=== PATIENT | male | born 1980 | race Caucasian/White ===

== ENCOUNTER 2017-09-12 19:27 | Inpatient (IN) | payer BC ==
[~2017-09-12] VITALS: Ht 172.7 cm; Wt 86.1 kg
[2017-09-12 19:32] VITALS: PULSE 142; RESP 22; O2SAT 91
[2017-09-12 19:45] VITALS: BP 140/62; PULSE 121; RESP 30; TEMP 99.5
[2017-09-12] MEDS ORDERED: SODIUM CHLORIDE 0.9% FLUSH 10 ML FLUSH IVF PRN (19:45)
[2017-09-12] MEDS ORDERED: LORazepam 2 MG/ML VIAL IV PUSH ONE ×2 (19:45→20:00)
[2017-09-12] MEDS ORDERED: SODIUM CHLOR 0.9% 1000 ML INJ 1,000 ML IV ONE (20:00)
[2017-09-12 20:12] LABS: AUTOMATED NEUTROPHIL # 15.3 TH/MM3 (1.8-7.7); BASOPHIL # 0.1 TH/MM3 (0-0.2); BASOPHIL % 0.4 % (0.0-2.0); EOSINOPHIL # 0.1 TH/MM3 (0-0.4); EOSINOPHIL % 0.4 % (0.0-4.0); HEMATOCRIT 35.6 % (39.0-51.0); HEMOGLOBIN 12.4 GM/DL (13.0-17.0); LYMPHOCYTE # 1.3 TH/MM3 (1.0-4.8); MEAN CELL VOLUME 84.7 FL (80.0-100.0); MEAN CORPUSCULAR HEMOGLOBIN 29.5 PG (27.0-34.0); MEAN CORPUSCULAR HGB CONC 34.8 % (32.0-36.0); MEAN PLATELET VOLUME 7.5 FL (7.0-11.0); MONO % 10.5 % (0.0-8.0); NEUT % 81.7 % (16.0-70.0); PLATELET COUNT 341 TH/MM3 (150-450); RED CELL DISTRIBUTION WIDTH 13.4 % (11.6-17.2); WHITE BLOOD COUNT 18.7 TH/MM3 (4.0-11.0)
[2017-09-12 20:34] VITALS: O2SAT 98
--- NOTE | 2017-09-12 20:39 | RADRPT ---
EXAM DATE/TIME: 09/12/2017 20:14 [facility] COMPARISON: No previous studies available for comparison. INDICATIONS : Overdose. Chest pain. MEDICAL HISTORY : None. SURGICAL HISTORY : None. ENCOUNTER: Initial ACUITY: 1 day PAIN SCORE: Non-responsive. LOCATION: Bilateral chest FINDINGS: A single view of the chest demonstrates minimal density left lower lobe. Heart normal in size. The ca rdiomediastinal contours are unremarkable. Osseous structures are intact. CONCLUSION: Minimal density left lower lobe likely atelectasis. Carlos Bedoya MD on September 12, 2017 at 20:36 Board Certified Radiologist. This report was verified electronically.
[2017-09-12] MEDS ORDERED: PIPERACIL-TAZO 4.5 GM PREMIX 100 ML IV ONE (21:00)
[2017-09-12] MEDS ORDERED: VANCOMYCIN INJ 1,000 MG in SODIUM CHLOR 0.9% 250 ML INJ 250 ML IV ONE (22:00)
[2017-09-12 22:05] LABS: ALBUMIN 2.8 GM/DL (3.4-5.0); AST (GOT) 400 U/L (15-37); BICARBONATE 25.5 MEQ/L (21.0-32.0); BLOOD UREA NITROGEN 27 MG/DL (7-18); CALCIUM 8.3 MG/DL (8.5-10.1); CHLORIDE 96 MEQ/L (98-107); CREATININE 1.52 MG/DL (0.60-1.30); GLOMERULAR FILTRATION RATE 52 ML/MIN (>89); GLUCOSE,RANDOM 107 MG/DL (74-106); SODIUM (NA) 131 MEQ/L (136-145)
[2017-09-12 22:32] LABS: ALKALINE PHOSPHATASE 70 U/L (45-117); ALT (GPT) 100 U/L (12-78); TOTAL BILIRUBIN ADULT 0.5 MG/DL (0.2-1.0); TOTAL PROTEIN 6.1 GM/DL (6.4-8.2); TROPONIN I 0.05 NG/ML (0.02-0.05)
--- NOTE | 2017-09-12 23:25 | HHI.HP ---
HPI Service Critical Care Medicine Primary Care Physician Unknown Admission Diagnosis Cocaine overdose, pneumonia, possible endocarditis Diagnosis: Travel History International Travel<30 Days: No Contact w/Intl Traveler <30 Da: No Traveled to Known Affected Are: No History of Present Illness 37-year-old male with past medical history of substance abuse who presents to [facility] emergency department with altered mental status. His girlfriend states that he has "been on a gonzalez" for 3 weeks and has been injecting crack cocaine. Today his father states he was driving him around trying to get him admitted into rehabilitation but the patient was refusing. He then became confused, "talking nonsense" and diaphoretic and therefore he brought him to [facility] emergency department. Upon arrival ED physician states heart rate was nearly 200 with blood pressure 240/ 140. He has been administered Ativan total of 4 mg IV. Blood pressure is 140 over 60s with heart rate in the 120s. His girlfriend states he was admitted to [facility] in [place] 3 times over the last few weeks for "sepsis" and signed himself out AMA each time. He was last in the hospital about a week and a half ago. In the ED he received 1 L normal saline bolus, vancomycin, Zosyn. His lactic acid is normal. His creatinine is elevated to 1.52. Transaminases are elevated. White blood cell count is 18 Review of Systems ROS Limitations: Clinical Condition Past Family Social History Allergies: Coded Allergies: No Known Allergies (Verified Allergy, Severe, 09/13/17) Past Medical History Anxiety Polysubstance abuse Past Surgical History ORIF left forearm Reported Medications Wellbutrin Trazodone Family History Mother in 2013 from breast cancer He had a maternal aunt with multiple sclerosis Social History He is a smoker. Reportedly he had quit for about a year and recently resumed smoking He drinks alcohol but not usually heavily Has a history of polysubstance abuse and both snorts and injects narcotics. His drug of choice is injection of crack cocaine. His family reports that he was clean for about a year and recently started using again after he relapsed following receiving narcotics for dental procedure. He has been in detox multiple times in the past. Physical Exam Vital Signs Vital Signs Date Time Temp Pulse Resp B/P (MAP) Pulse Ox O2 Delivery O2 Flow Rate FiO2 09/12/17 20:34 98 Room Air 09/12/17 19:45 99.5 121 30 140/62 (88) 09/12/17 19:32 142 22 91 Physical Exam GENERAL: Well-nourished, well-developed patient who is asleep in ED stretcher. When aroused he becomes agitated and restless, moving all extremities SKIN: Warm and dry. Track parker left upper arm. No petechiae. Respiratory hemorrhages. HEAD: Atraumatic. Normocephalic. EYES: Pupils equal and round, 3 mm and reactive bilaterally. No scleral icterus. Conjunctivae injected. ENT: No nasal bleeding or discharge. Mucous membranes dry NECK: Trachea midline. No JVD. CARDIOVASCULAR: Cardiopulmonary examination is somewhat limited because patient is moaning during examination. Tachycardic, regular, no murmurs rubs or gallops.. RESPIRATORY: Tachypneic but no accessory muscle use. Clear to auscultation. Breath sounds equal bilaterally. On nasal cannula. GASTROINTESTINAL: Abdomen soft, non-tender, nondistended. Bowel sounds present. MUSCULOSKELETAL: Extremities without clubbing, cyanosis, or edema. No obvious deformities. Scar overlying left forearm is well-healed. NEUROLOGICAL: Opens eyes to noxious stimuli. Gaze is conjugate. Moves all extremities restlessly and localizes.. No obvious cranial nerve deficits. Motor grossly within normal limits. Moans. Laboratory Laboratory Tests Test 09/12/17 19:50 09/12/17 21:05 09/12/17 21:35 White Blood Count 18.7 Red Blood Count 4.20 Hemoglobin 12.4 Hematocrit 35.6 Mean Corpuscular Volume 84.7 Mean Corpuscular Hemoglobin 29.5 Mean Corpuscular Hemoglobin Concent 34.8 Red Cell Distribution Width 13.4 Platelet Count 341 Mean Platelet Volume 7.5 Neutrophils (%) (Auto) 81.7 Lymphocytes (%) (Auto) 7.0 Monocytes (%) (Auto) 10.5 Eosinophils (%) (Auto) 0.4 Basophils (%) (Auto) 0.4 Neutrophils # (Auto) 15.3 Lymphocytes # (Auto) 1.3 Monocytes # (Auto) 2.0 Eosinophils # (Auto) 0.1 Basophils # (Auto) 0.1 CBC Comment DIFF FINAL Differential Comment B-Type Natriuretic Peptide 40 Lactic Acid Level 1.2 Blood Urea Nitrogen 27 Creatinine 1.52 Random Glucose 107 Total Protein 6.1 Albumin 2.8 Calcium Level 8.3 Alkaline Phosphatase 70 Aspartate Amino Transf (AST/SGOT) 400 Alanine Aminotransferase (ALT/SGPT) 100 Total Bilirubin 0.5 Sodium Level 131 Potassium Level 3.5 Chloride Level 96 Carbon Dioxide Level 25.5 Anion Gap 10 Estimat Glomerular Filtration Rate 52 Total Creatine Kinase 40046 Creatine Kinase MB 64.3 Creatine Kinase MB % 0.6 Troponin I 0.05 Date/Time Source Procedure Growth Status 09/12/17 21:05 Blood Peripheral Aerobic Blood Culture Pending Received 09/12/17 21:05 Blood Peripheral Anaerobic Blood Culture Pending Received Result Diagram: 09/12/17194909/12/172134 Caprinwilma VTE Risk Assessment Keo VTE Risk Assessment: Mod/High Risk (score >= 2) VTE Pharm Contraindication: risk of bleeding if he has septic emboli Keo Risk Assessment Model Point Value = 1 Point Value = 2 Point Value = 3 Point Value = 5 Age 41-60 Minor surgery BMI > 25 kg/m2 Swollen legs Varicose veins or History of unexplained or recurrent spontaneous Oral contraceptives or hormone replacement Sepsis (< 1 month) Serious lung disease, including pneumonia (< 1 month) Abnormal pulmonary function Acute myocardial infarction Congestive heart failure (< 1 month) History of inflammatory bowel disease Medical patient at bed rest Age 61-74 Arthroscopic surgery Major open surgery (> 45 min) Laparoscopic surgery (> 45 min) Malignancy Confined to bed (> 72 hours) Immobilizing plaster cast Central venous access Age >= 75 History of VTE Family history of VTE Factor V Leiden Prothrombin [id number] Lupus anticoagulant Anticardiolipin antibodies Elevated serum homocysteine Heparin-induced thrombocytopenia Other congenital or acquired thrombophilia Stroke (< 1 month) Elective arthroplasty Hip, pelvis, or leg fracture Acute spinal cord injury (< 1 month) Prophylaxis Regimen Total Risk Factor Score Risk Level Prophylaxis Regimen 0-1 Low Early ambulation 2 Moderate Order ONE of the following: *Sequential Compression Device (SCD) *Heparin 5000 units SQ BID 3-4 Higher Order ONE of the following medications: *Heparin 5000 units SQ TID *Enoxaparin/Lovenox 40 mg SQ daily (WT < 150 kg, CrCl > 30 mL/min) *Enoxaparin/Lovenox 30 mg SQ daily (WT < 150 kg, CrCl > 10-29 mL/min) *Enoxaparin/Lovenox 30 mg SQ BID (WT < 150 kg, CrCl > 30 mL/min) AND/OR *Sequential Compression Device (SCD) 5 or more Highest Order ONE of the following medications: *Heparin 5000 units SQ TID (Preferred with Epidurals) *Enoxaparin/Lovenox 40 mg SQ daily (WT < 150 kg, CrCl > 30 mL/min) *Enoxaparin/Lovenox 30 mg SQ daily (WT < 150 kg, CrCl > 10-29 mL/min) *Enoxaparin/Lovenox 30 mg SQ BID (WT < 150 kg, CrCl > 30 mL/min) AND *Sequential Compression Device (SCD) Assessment and Plan Assessment and Plan NEURO: Agitated delirium Polysubstance abuse, IVDU opioid/crack cocaine ED physician states he is placing under Kaminski act. We'll obtain psychiatric consult when patient is able to participate. Check UDS, alcohol level, ASA/APAP, CT brain. RESP: Pneumonitis Tobacco abuse DuoNeb every 6 hours. Albuterol every 2 hours as needed. CXR - bilateral opacities ?pneumonitis. Obtain CT chest to further characterize and evaluate for septic pulmonary emboli. Noncontrast due to acute kidney injury. CV: Tachycardia and hypertension on arrival secondary to stimulant use. Following EKG and cardiac markers. Obtain 2-D echo to evaluate for vegetation GI: Transaminase elevation Trend LFts. Check CT abd/pelvis to eval for e/o septic emboli FEN/RENAL: Acute kidney injury Acute rhabdomyolysis secondary to stimulant use LR 150 an hour Monitor intake and output closely. Monitor creatinine. Trend CPK Monitor electrolytes and replace as indicated. ID: ?[id number] Leukocytosis/tachycardia may be secondary to stimulant but he is at risk for bacteremia/ endocarditis due to IVDU. Lactic acid normal Check blood culture, influenza antigen, UA with reflex culture. Received empiric vancomycin and Zosyn in the ED. Will continue. HEME: Check coags and fibrinogen. ENDO: Euglycemic PROPH: SCDs for DVT prophylaxis. Avoid pharmacologic DVT prophylaxis until evaluate CT brain. Famotidine for stress ulcer prophylaxis. ACCESS: Peripheral IV providing adequate access at this time. Girlfriend and father updated at bedside. Multiple questions answered. Level III H&P Sandy Bartholomew MD Sep 12, 2017 23:25
[2017-09-12] MEDS ORDERED: BISACODYL 10 MG SUPP RECTAL PRN (23:45)
[2017-09-12] MEDS ORDERED: SENNOSIDES 8.6 MG TAB PO PRN (23:45)
[2017-09-12] MEDS ORDERED: RESP: ALBUTEROL 2.5 MG/3 ML NEB (PRN) INH (23:45)
[2017-09-12] MEDS ORDERED: MISCELLANEOUS NURSING INFORMATION XX SCH (23:45)
[2017-09-12] MEDS ORDERED: ONDANSETRON HCL 4 MG/2 ML VIAL IV PUSH PRN (23:45)
[2017-09-12] MEDS ORDERED: Vancomycin Consult Pharmacy 1 EA OTHER SCH (23:45)
[2017-09-12] MEDS ORDERED: CHLORHEXIDINE GLUCONATE 2 % 1 PACK (2 CLOTHS) TOP PRN (23:45)
[2017-09-12] MEDS ORDERED: LACTULOSE SYRUP 20 GM/30 ML CUP PO PRN (23:45)
[2017-09-12] MEDS ORDERED: MAGNESIUM HYDROXIDE SUSP 30 ML CUP PO PRN (23:45)
[2017-09-12] MEDS ORDERED: SODIUM CHLORIDE 0.9% FLUSH 10 ML FLUSH IV FLUSH PRN (23:45)
[2017-09-13] VITALS (19 sets, daily range): BP systolic 108–139; BP diastolic 59–82; PULSE 89–107; RESP 16–34; TEMP 98.1–99.6; O2SAT 93–98
[2017-09-13] LABS: AMORPHOUS SEDIMENT, URINE RARE; BILIRUBIN, URINE NEG (NEG); BLOOD, URINE LARGE (NEG); GLUCOSE,URINE NEG (NEG); KETONE, URINE TRACE mg/dL (NEG); NITRITE,URINE NEG (NEG); URINE COLOR YELLOW (YELLW/STRAW); URINE LEUKOCYTE ESTERASE NEG (NEG)
[2017-09-13 00:12] LABS: ACETAMINOPHEN LESS THAN 2.0 MCG/ML (10.0-30.0)
[2017-09-13 00:13] LABS: INTERNATIONAL NORMALIZED RATIO 1.2 RATIO
--- NOTE | 2017-09-13 01:11 | RADRPT ---
EXAM DATE/TIME: 09/13/2017 00:48 [facility] COMPARISON: No previous studies available for comparison. INDICATIONS : Altered mental status, possible overdose. RADIATION DOSE: 56.35 CTDIvol (mGy) MEDICAL HISTORY : None SURGICAL HISTORY : None. ENCOUNTER: Initial ACUITY: 1 day PAIN SCALE: 0/10 LOCATION: cranial TECHNIQUE: Multiple contiguous axial images were obtained of the head. Using automated exposure control and adj ustment of the mA and/or kV according to patient size, radiation dose was kept as low as reasonably a chievable to obtain optimal diagnostic quality images. DICOM format image data is available electro nically for review and comparison. FINDINGS: CEREBRUM: The ventricles are normal for age. No evidence of midline shift, mass lesion, hemorrhage or acute in farction. No extra-axial fluid collections are seen. POSTERIOR FOSSA: The cerebellum and brainstem are intact. The 4th ventricle is midline. The cerebellopontine angle i s unremarkable. EXTRACRANIAL: The visualized portion of the orbits is intact. SKULL: The calvaria is intact. No evidence of skull fracture. CONCLUSION: No acute disease. Campbell Chaudhary Jr., MD on September 13, 2017 at 1:09 Board Certified Radiologist. This report was verified electronically.
--- NOTE | 2017-09-13 01:12 | RADRPT ---
EXAM DATE/TIME: 09/13/2017 00:51 [facility] COMPARISON: CHEST SINGLE AP, September 12, 2017, 20:14. INDICATIONS : Shortness of breath, evaluate for pneumonia. RADIATION DOSE: 5.54 CTDIvol (mGy) ; Combined studies - Thorax/Abdomen/Pelvis MEDICAL HISTORY : None SURGICAL HISTORY : None. ENCOUNTER: Initial ACUITY: 1 day PAIN SCALE: 0/10 LOCATION: chest TECHNIQUE: Volumetric scanning of the chest was performed. Using automated exposure control and adjustment of t he mA and/or kV according to patient size, radiation dose was kept as low as reasonably achievable to obtain optimal diagnostic quality images. DICOM format image data is available electronically for r eview and comparison. Follow-up recommendations for detected pulmonary nodules are based at a minimum on nodule size and pa tient risk factors according to Fleischner Society Guidelines. FINDINGS: LUNGS: Diffuse scattered bilateral ground glass infiltrates involving both upper lower lobes. PLEURAE: There is no pleural thickening or pleural effusion. MEDIASTINUM: The heart and great vessels demonstrate no acute abnormality. There is no mediastinal or hilar lymph adenopathy. AXILLAE: Within normal limits. No lymphadenopathy. MUSCULOSKELETAL: Within normal limits for patient age. MISCELLANEOUS: The visualized upper abdominal organs demonstrate no acute abnormality. CONCLUSION: 1. Bilateral pulmonary infiltrates. Campbell Chaudhary Jr., MD on September 13, 2017 at 1:10 Board Certified Radiologist. This report was verified electronically.
--- NOTE | 2017-09-13 01:13 | RADRPT ---
EXAM DATE/TIME: 09/13/2017 00:51 [facility] COMPARISON: No previous studies available for comparison. INDICATIONS : Abdominal pain, possible sepsis. ORAL CONTRAST: No oral contrast ingested. RADIATION DOSE: 5.54 CTDIvol (mGy) ; Combined studies - Thorax/Abdomen/Pelvis MEDICAL HISTORY : None SURGICAL HISTORY : None. ENCOUNTER: Initial ACUITY: 1 day PAIN SCALE: 4/10 LOCATION: All quadrants. TECHNIQUE: Volumetric scanning of the abdomen and pelvis was performed. Using automated exposure control and ad justment of the mA and/or kV according to patient size, radiation dose was kept as low as reasonably achievable to obtain optimal diagnostic quality images. DICOM format image data is available electro nically for review and comparison. FINDINGS: LOWER LUNGS: The visualized lower lungs are clear. LIVER: Homogeneous density without lesion. There is no dilation of the biliary tree. No calcified gallston es. SPLEEN: Normal size without lesion. PANCREAS: Within normal limits. KIDNEYS: Normal in size and shape. There is no mass, stone, or hydronephrosis. ADRENAL GLANDS: Within normal limits. VASCULAR: There is no aortic aneurysm. BOWEL/MESENTERY: The stomach, small bowel, and colon demonstrate no acute abnormality. There is no free intraperitone al air or fluid. ABDOMINAL WALL: Within normal limits. RETROPERITONEUM: There is no lymphadenopathy. BLADDER: No wall thickening or mass. REPRODUCTIVE: Within normal limits. INGUINAL: There is no lymphadenopathy or hernia. MUSCULOSKELETAL: Within normal limits for patient age. CONCLUSION: No acute disease. Campbell Chaudhary Jr., MD on September 13, 2017 at 1:11 Board Certified Radiologist. This report was verified electronically.
[2017-09-13] MEDS: SODIUM CHLOR 0.9% 1000 ML INJ 1,000 ML IV SCH ×2 (01:57→06:28)
[2017-09-13] MEDS: PIPERACIL-TAZO 3.375 GM PREMIX 50 ML IV SCH ×4 (02:40→20:44)
[2017-09-13 03:45] LABS: AUTOMATED NEUTROPHIL # 10.7 TH/MM3 (1.8-7.7); BASOPHIL % 0.3 % (0.0-2.0); EOSINOPHIL % 0.2 % (0.0-4.0); HEMATOCRIT 34.6 % (39.0-51.0); HEMOGLOBIN 11.9 GM/DL (13.0-17.0); LYMPH % 8.9 % (9.0-44.0); LYMPHOCYTE # 1.2 TH/MM3 (1.0-4.8); MEAN CORPUSCULAR HEMOGLOBIN 29.3 PG (27.0-34.0); MEAN CORPUSCULAR HGB CONC 34.4 % (32.0-36.0); MEAN PLATELET VOLUME 7.4 FL (7.0-11.0); MONO % 8.9 % (0.0-8.0); MONOCYTE # 1.2 TH/MM3 (0-0.9); NEUT % 81.7 % (16.0-70.0); PLATELET COUNT 295 TH/MM3 (150-450); RED BLOOD COUNT 4.07 MIL/MM3 (4.50-5.90); RED CELL DISTRIBUTION WIDTH 13.7 % (11.6-17.2); WHITE BLOOD COUNT 13.1 TH/MM3 (4.0-11.0)
[2017-09-13 03:58] LABS: ALBUMIN 2.8 GM/DL (3.4-5.0); ALT (GPT) 101 U/L (12-78); AST (GOT) 354 U/L (15-37); BLOOD UREA NITROGEN 18 MG/DL (7-18); CHLORIDE 100 MEQ/L (98-107); CREATININE 1.14 MG/DL (0.60-1.30); GLOMERULAR FILTRATION RATE 73 ML/MIN (>89); GLUCOSE,RANDOM 110 MG/DL (74-106); MAGNESIUM 1.8 MG/DL (1.5-2.5); PHOSPHORUS 2.5 MG/DL (2.5-4.9); SODIUM (NA) 134 MEQ/L (136-145)
[2017-09-13] MEDS: CHLORHEXIDINE GLUCONATE 2 % 1 PACK (2 CLOTHS) TOP SCH (03:59)
[2017-09-13 04:24] LABS: ALKALINE PHOSPHATASE 68 U/L (45-117); TOTAL BILIRUBIN ADULT 0.6 MG/DL (0.2-1.0); TOTAL PROTEIN 5.9 GM/DL (6.4-8.2); TROPONIN I 0.04 NG/ML (0.02-0.05)
[2017-09-13] MEDS: HEPARIN SODIUM - SQ 10,000 UNITS/ML VIAL SQ SCH ×3 (06:27→20:44)
[2017-09-13] MEDS ORDERED: HALOPERIDOL LACTATE 5 MG/ML AMP IV PUSH PRN (08:00)
--- NOTE | 2017-09-13 08:02 | HHI.CCPN ---
Subjective Remarks/Hospital Course Hospital Course: 37-year-old male with past medical history of substance abuse who presents to [facility] emergency department with altered mental status. His girlfriend states that he has "been on a gonzalez" for 3 weeks and has been injecting crack cocaine. Today his father states he was driving him around trying to get him admitted into rehabilitation but the patient was refusing. She then became confused, "talking nonsense" and diaphoretic and therefore he brought to [facility] emergency department. Upon arrival ED physician states heart rate was nearly 200 with blood pressure 240/ 140. He has been administered Ativan total of 4 mg IV. Blood pressure is 140 over 60s with heart rate in the 120s. His girlfriend states he was admitted to [facility] in [place] 3 times over the last few weeks for "sepsis" and signed himself out AMA each time. He was last in the hospital about a week and a half ago. In the ED he received 1 L normal saline bolus, vancomycin, Zosyn. His lactic acid is normal. His creatinine is elevated to 1.52. Transaminases are elevated. White blood cell count is 18 Subjective: 09/13: doing well. denies complaints. ROS negative. HR and BP improved. severe agitation improved as well. CK downtrending. Cr baseline. LFTs downtrending. uop adequate. Objective Vital Signs Date Time Temp Pulse Resp B/P (MAP) Pulse Ox O2 Delivery O2 Flow Rate FiO2 09/13/17 06:00 98 09/13/17 04:00 99.4 26 114/65 (81) 97 09/13/17 03:58 Nasal Cannula 2.00 Intake and Output 09/13/17 09/13/17 09/14/17 08:00 16:00 00:00 Intake Total 2400 ml Output Total 1115 ml Balance 1285 ml Result Diagram: 09/13/17 0326 09/13/17 0326 Objective Remarks GENERAL: young male, lying in bed, resting comfortably. SKIN: Warm and dry. Track parker left upper arm. No petechiae. HEAD: Atraumatic. Normocephalic. EYES: Pupils equal and round, 3 mm and reactive bilaterally. No scleral icterus. ENT: No nasal bleeding or discharge. Mucous membranes dry NECK: Trachea midline. No JVD. CARDIOVASCULAR: normal rate, regular rhythm. sinus by telemetry. RESPIRATORY: equal chest rise. unlabored. 2L o2 by nc. GASTROINTESTINAL: Abdomen soft, non-tender, nondistended. no guarding. MUSCULOSKELETAL: Extremities without clubbing, cyanosis, or edema. No obvious deformities. Scar overlying left forearm is well-healed. NEUROLOGICAL: opens eyes to voice. follows commands. no focal deficits. A/P Assessment and Plan Assessment: 37yM presented with toxic encephalopathy secondary to cocaine overdose and acute hypoxemia. High suspicion for infective endocarditis given the history, and his pulmonary imaging is suggestive of possible septic emboli vs. crack lung. Continue ivf and abx and f/u 2d echo and cultures. trend CK. stable for transfer to floor. NEURO: Polysubstance abuse, IVDU opioid/crack cocaine Toxic Encephalopathy - improved. under Kaminski Act by ED physician psych consult. haldol prn for severe agitation watch for withdraw symptoms. RESP: Tobacco abuse Crack lung vs. Septic Emboli DuoNeb every 6 hours. Albuterol every 2 hours as needed. wean o2 by nc for goal spo2 > 92% aggressive pulmonary toilet PT consult OOB CV: Tachycardia and hypertension - resolved. likely secondary to overdose. f/u 2d echo GI: Transaminase elevation- improving swallow eval and advance diet trend LFTs daily FEN/RENAL: Acute kidney injury- improving. Acute rhabdomyolysis- improving trend CKs q6h continue LR @ 150cc/hr ID: Continue vancomycin, zosyn. f/u blood cultures f/u echo HEME: daily cbc. ENDO: Euglycemic PROPH: SCDs for DVT prophylaxis. lovenox. Famotidine for stress ulcer prophylaxis. ACCESS: Peripheral IV providing adequate access at this time. Dispo: transfer to floor. consult hospitalist services. Ugo Loaiza MD Sep 13, 2017 08:02
[2017-09-13] MEDS: LACTATED RINGER'S 1000 ML INJ 1,000 ML IV SCH ×2 (08:30→14:40)
[2017-09-13] MEDS: SODIUM CHLORIDE 0.9% FLUSH 10 ML FLUSH IV FLUSH SCH ×2 (08:36→20:44)
[2017-09-13] MEDS: FAMOTIDINE 20 MG TAB PO SCH ×2 (08:41→20:44)
[2017-09-13] MEDS: DOCUSATE SODIUM 50 MG/SENNA 8.6 MG TAB PO SCH ×2 (08:42→20:45)
[2017-09-13] MEDS ORDERED: ENOXAPARIN SODIUM 40 MG/0.4 ML SYRINGE SQ SCH (09:00)
[2017-09-13] MEDS ORDERED: FAMOTIDINE 20 MG/2 ML VIAL IV PUSH PRN (09:00)
[2017-09-13] MEDS: VANCOMYCIN INJ 1,750 MG in SODIUM CHLORID 0.9% 500 ML INJ 500 ML IV SCH ×2 (12:26→22:52)
[2017-09-13] MEDS ORDERED: LACTATED RINGER'S 1000 ML INJ 1,000 ML IV ONE (12:30)
--- NOTE | 2017-09-13 13:20 | PD.PSY.CON ---
Provisional Diagnosis Admission Date Sep 12, 2017 at 21:59 [place] I. Adjustment Disorder with depressed mood, polysubstance dependence including opiates, cocaine, benzodiazepines [place] II. Deferred [place] III. No significant medical history History of Present Illness Service Psychiatry Consult Requested By Critical care team Reason for Consult Suicidal attempt Primary Care Physician Unknown HPI The patient is a 37-year-old man, single, domiciled with his father, unemployed, with psychiatric history of depression, no previous psychiatric admission, no currently psychotropics or outpatient care, polysubstance dependence including opiates, cocaine, benzodiazepines, patient has been Kaminski acted before due to substance related issues, history of incarcerations, no significant medical history who presents to [facility] emergency department with altered mental status. His girlfriend states that he has "been on a gonzalez" for 3 weeks and has been injecting crack cocaine. Today his father states he was driving him around trying to get him admitted into rehabilitation but the patient was refusing. He then became confused, "talking nonsense" and diaphoretic and therefore he brought him to [facility] emergency department. Upon arrival ED physician states heart rate was nearly 200 with blood pressure 240/140. He has been administered Ativan total of 4 mg IV. Blood pressure is 140 over 60s with heart rate in the 120s. His girlfriend states he was admitted to [facility] in [place] 3 times over the last few weeks for "sepsis" and signed himself out AMA each time. He was last in the hospital about a week and a half ago. In the ED he received 1 L normal saline bolus, vancomycin, Zosyn. His lactic acid is normal. His creatinine is elevated to 1.52. Transaminases are elevated. White blood cell count is 18. Consulted to psychiatry to assess potential suicidal attempt behind overdose. Patient is currently on the Kaminski act. At the moment of this evaluation the patient reports that he overdosed with multiple drugs "to forget and to go to sleep". He says that at some point he verbalized that he wanted to and he was better to be . He says that there are issues in his life. He refused to talk about at this moment stating "I want to talk about". He does say that he has been sober for certain time, but recently has relapsed and has been using drugs continuously. At this moment the patient denies suicidal ideation and homicidal ideation, he denies visual and auditory hallucinations. No confusion is observed, no delirium. He is oriented 3. Collateral from his father Srini Antony, [id number]: His father states that He is a drugs abuser, but he was fine for a year or more, the he was to the dentist got prescribe some pain medications and apparently since then he has relapsed. The father clarifies that the patient verbalized suicidal intentions multiple times when he was in his way to the hospital. He says that this is the first time he sees his son so disorganized and so depressed. Review of Systems Psychiatric: COMPLAINS OF: Depression, Suicidal Ideation Except as stated in HPI: all other systems reviewed are Neg Past Family Social History Coded Allergies: No Known Allergies (Verified Allergy, Severe, 09/13/17) Current Medications Medications (Trade) Dose Ordered Sig/Amanda Route Start Time Stop Time Status Last Admin (NS Flush) 2 ml UNSCH PRN IV FLUSH 09/12/17 23:45 (NS Flush) 2 ml BID IV FLUSH 09/13/17 09:00 09/13/17 08:36 (Pepcid Inj) 20 mg Q12HR PRN IV PUSH 09/13/17 09:00 (Pepcid) 20 mg Q12HR PO 09/13/17 09:00 09/13/17 08:41 (Zofran Inj) 4 mg Q6H PRN IV PUSH 09/12/17 23:45 (Albuterol Neb) 2.5 mg Q2HR NEB PRN INH 09/12/17 23:45 Miscellaneous Information 1 Q361D XX 09/12/17 23:45 09/13/17 01:50 (Chlorhexidine 2% Cloth) 3 pack Taper DAILY@04 TOP 09/13/17 04:00 09/09/18 03:59 09/13/17 03:59 (Chlorhexidine 2% Cloth) 3 pack UNSCH PRN TOP 09/12/17 23:45 (Tania-Colace) 1 tab BID PO 09/13/17 09:00 (Milk Of Magnesia Liq) 30 ml Q12H PRN PO 09/12/17 23:45 (Senokot) 17.2 mg Q12H PRN PO 09/12/17 23:45 (Dulcolax Supp) 10 mg DAILY PRN RECTAL 09/12/17 23:45 (Lactulose Liq) 30 ml DAILY PRN PO 09/12/17 23:45 Pharmacy Profile Note 0 ml @ 0 mls/hr UNSCH OTHER 09/12/17 23:45 Piperacillin Sod/ Tazobactam Sod 50 ml @ 100 mls/hr Q6H IV 09/13/17 03:00 09/13/17 08:35 (Heparin Inj) 5,000 units Q8HR SQ 09/13/17 06:00 09/13/17 06:27 Lactated Ringer's 1,000 ml @ 150 mls/hr Q6H40M IV 09/13/17 08:00 09/13/17 08:30 (Haldol Inj) 5 mg Q4H PRN IV PUSH 09/13/17 08:00 Vancomycin HCl 1750 mg/Sodium Chloride 517.5 ml @ 250 mls/hr Q12H IV 09/13/17 11:00 09/13/17 12:26 Miscellaneous Information SPECIFIC LAB TO BE DRAWN:VANCOMYCIN TROUGH DATE TO... ONCE ONCE .XX 09/14/17 10:45 09/14/17 10:46 Lactated Ringer's 1,000 ml @ 999 mls/hr BOLUS ONCE IV 09/13/17 12:30 09/13/17 13:30 (Desyrel) 100 mg HS PO 09/13/17 21:00 UNV Family Psych History No family psychiatric history Social History Patient was born and raised in [place], he lives with his father in [place], he has a girlfriend, unemployed, highest level of education is some college Patient's Strengths (min. 2) Support of family Physical Exam At this moment no tremors, no EPS, but psychomotor retardation noted Vital Signs Vital Signs Date Time Temp Pulse Resp B/P (MAP) Pulse Ox O2 Delivery O2 Flow Rate FiO2 09/13/17 12:00 101 09/13/17 08:00 99.6 28 133/82 (99) 96 09/13/17 03:58 Nasal Cannula 2.00 I/O 09/13/17 09/13/17 09/14/17 08:00 16:00 00:00 Intake Total 2400 ml 700 ml Output Total 1115 ml Balance 1285 ml 700 ml Lab Results Test 09/12/17 19:50 09/12/17 21:05 09/12/17 21:35 09/12/17 23:43 White Blood Count 18.7 TH/MM3 Red Blood Count 4.20 MIL/MM3 Hemoglobin 12.4 GM/DL Hematocrit 35.6 % Mean Corpuscular Volume 84.7 FL Mean Corpuscular Hemoglobin 29.5 PG Mean Corpuscular Hemoglobin Concent 34.8 % Red Cell Distribution Width 13.4 % Platelet Count 341 TH/MM3 Mean Platelet Volume 7.5 FL Neutrophils (%) (Auto) 81.7 % Lymphocytes (%) (Auto) 7.0 % Monocytes (%) (Auto) 10.5 % Eosinophils (%) (Auto) 0.4 % Basophils (%) (Auto) 0.4 % Neutrophils # (Auto) 15.3 TH/MM3 Lymphocytes # (Auto) 1.3 TH/MM3 Monocytes # (Auto) 2.0 TH/MM3 Eosinophils # (Auto) 0.1 TH/MM3 Basophils # (Auto) 0.1 TH/MM3 CBC Comment DIFF FINAL Differential Comment B-Type Natriuretic Peptide 40 PG/ML Lactic Acid Level 1.2 mmol/L Blood Urea Nitrogen 27 MG/DL Creatinine 1.52 MG/DL Random Glucose 107 MG/DL Total Protein 6.1 GM/DL Albumin 2.8 GM/DL Calcium Level 8.3 MG/DL Alkaline Phosphatase 70 U/L Aspartate Amino Transf (AST/SGOT) 400 U/L Alanine Aminotransferase (ALT/SGPT) 100 U/L Total Bilirubin 0.5 MG/DL Sodium Level 131 MEQ/L Potassium Level 3.5 MEQ/L Chloride Level 96 MEQ/L Carbon Dioxide Level 25.5 MEQ/L Anion Gap 10 MEQ/L Estimat Glomerular Filtration Rate 52 ML/MIN Total Creatine Kinase 21061 U/L Creatine Kinase MB 64.3 NG/ML Creatine Kinase MB % 0.6 % Troponin I 0.05 NG/ML Salicylates Level LESS THAN 1.7 MG/DL Acetaminophen Level LESS THAN 2.0 MCG/ML Ethyl Alcohol Level LESS THAN 3 MG/DL Prothrombin Time 12.0 SEC Prothromb Time International Ratio 1.2 RATIO Activated Partial Thromboplast Time 32.4 SEC Fibrinogen 458 mg/dL Urine Color YELLOW Urine Turbidity CLEAR Urine pH 6.0 Urine Specific [place] 1.016 Urine Protein 30 mg/dL Urine Glucose (UA) NEG mg/dL Urine Ketones TRACE mg/dL Urine Occult Blood LARGE Urine Nitrite NEG Urine Bilirubin NEG Urine Urobilinogen LESS THAN 2.0 MG/DL Urine Leukocyte Esterase NEG Urine RBC 12 /hpf Urine WBC 1 /hpf Urine Amorphous Sediment RARE Microscopic Urinalysis Comment CATH-CULT NOT IND Urine Opiates Screen POS Urine Barbiturates Screen NEG Urine Amphetamines Screen POS Urine Benzodiazepines Screen NEG Urine Cocaine Screen POS Urine Cannabinoids Screen NEG Test 09/13/17 01:15 09/13/17 03:26 09/13/17 08:58 09/13/17 08:59 Nasal Screen MRSA (PCR) MRSA DETECTED White Blood Count 13.1 TH/MM3 Red Blood Count 4.07 MIL/MM3 Hemoglobin 11.9 GM/DL Hematocrit 34.6 % Mean Corpuscular Volume 85.0 FL Mean Corpuscular Hemoglobin 29.3 PG Mean Corpuscular Hemoglobin Concent 34.4 % Red Cell Distribution Width 13.7 % Platelet Count 295 TH/MM3 Mean Platelet Volume 7.4 FL Neutrophils (%) (Auto) 81.7 % Lymphocytes (%) (Auto) 8.9 % Monocytes (%) (Auto) 8.9 % Eosinophils (%) (Auto) 0.2 % Basophils (%) (Auto) 0.3 % Neutrophils # (Auto) 10.7 TH/MM3 Lymphocytes # (Auto) 1.2 TH/MM3 Monocytes # (Auto) 1.2 TH/MM3 Eosinophils # (Auto) 0.0 TH/MM3 Basophils # (Auto) 0.0 TH/MM3 CBC Comment DIFF FINAL Differential Comment Blood Urea Nitrogen 18 MG/DL Creatinine 1.14 MG/DL Random Glucose 110 MG/DL Total Protein 5.9 GM/DL Albumin 2.8 GM/DL Calcium Level 8.0 MG/DL Phosphorus Level 2.5 MG/DL Magnesium Level 1.8 MG/DL Alkaline Phosphatase 68 U/L Aspartate Amino Transf (AST/SGOT) 354 U/L Alanine Aminotransferase (ALT/SGPT) 101 U/L Total Bilirubin 0.6 MG/DL Sodium Level 134 MEQ/L Potassium Level 3.6 MEQ/L Chloride Level 100 MEQ/L Carbon Dioxide Level 25.0 MEQ/L Anion Gap 9 MEQ/L Estimat Glomerular Filtration Rate 73 ML/MIN Total Creatine Kinase 6438 U/L 5214 U/L Creatine Kinase MB 50.6 NG/ML 47.6 NG/ML Creatine Kinase MB % 0.8 % 0.9 % Troponin I 0.04 NG/ML 0.02 NG/ML Date/Time Source Procedure Growth Status 09/12/17 21:05 Blood Peripheral Aerobic Blood Culture - Preliminary NO GROWTH IN 1 DAY Resulted 09/12/17 21:05 Blood Peripheral Anaerobic Blood Culture - Preliminary NO GROWTH IN 1 DAY Resulted Mental Status Examination Appearance: Appropriate Consciousness: Alert Orientation: x4 Motor Activity: Normal gait Speech: Unremarkable Language: Adequate Fund of Knowledge: Adequate Attention and Concentration: Adequate Memory: Unremarkable Mood: Sad Affect: Irritable, Sad Thought Process & Associations: Intact Thought Content: Appropriate Hallucination Type: None Delusion Type: None Suicidal Ideation: No Suicidal Plan: No Suicidal Intention: No Homicidal Ideation: No Homicidal Plan: No Homicidal Intention: No Insight: Poor Judgment: Poor Assessment & Plan Problem List: (1) Adjustment disorder with depressed mood ICD Codes: F43.21 - Adjustment disorder with depressed mood Assessment & Plan: On psychiatric evaluation today the patient seems to be and resistant, oppositional, very irritable. He reports that he has overdosed with the intention to "go away". He denies suicidal ideation at this moment, but his father on collateral information reports that the patient verbalized suicidal ideation multiple times while he was in his way to the hospital. Patient has been agitated and disorganized in the ICU, but at the moment of this evaluation he is oriented 3, logical and coherent. The patient will be admitted in psychiatry due to his high level of risk of suicidality and danger to himself. Since patient reports difficulty sleeping at night I will start trazodone 100 mg to help with depression and insomnia. Once patient is psychiatrically cleared please transfer to psychiatry for longitudinal observation of mood, behavior and to create a safe discharge plan to the patient. We'll follow-up. Assessment & Plan Estimated LOS: Michael Ferrell MD Sep 13, 2017 13:20
--- NOTE | 2017-09-13 16:33 | ECHRPT ---
Indication: SEPSIS CONCLUSIONS The left ventricular systolic function is normal with an estimated ejection fraction in the range of 60-65%. Normal left ventricular size. Wall thickness is normal. No regional wall motion abnormalities are present. BP: / HR: Rhythm: Sinus Technical Quality:Good FINDINGS LEFT VENTRICLE The left ventricular systolic function is normal with an estimated ejection fraction in the range of 60-65%. Normal left ventricular size. Wall thickness is normal. No regional wall motion abnormalities are present. RIGHT VENTRICLE Normal right ventricular size and systolic function. LEFT ATRIUM The left atrial size is normal. RIGHT ATRIUM The right atrial size is normal. ATRIAL SEPTUM Normal atrial septal thickness without atrial level shunting by limited color doppler interrogation. AORTA The aortic root and proximal ascending aorta are normal in size on limited imaging. MITRAL VALVE Structurally normal mitral valve. No mitral valve stenosis or regurgitation. AORTIC VALVE Trileaflet aortic valve. No aortic valve stenosis or regurgitation. TRICUSPID VALVE Structurally normal tricuspid valve. No tricuspid valve stenosis or regurgitation. PULMONARY VALVE The pulmonary valve is not well visualized. VESSELS The inferior vena cava is normal in size. PERICARDIUM No pericardial effusion. Vincenzo Cameron MD (Electronically Signed) Final Date:13 September 2017 16:32
[2017-09-13] MEDS ORDERED: traZODone HCL 100 MG TAB PO SCH (21:00)
[2017-09-14] VITALS: BP 118/70; PULSE 102; PULSE 92; RESP 16; TEMP 99; O2SAT 95
[2017-09-14] MEDS: LACTATED RINGER'S 1000 ML INJ 1,000 ML IV SCH ×3 (01:44→09:01)
[2017-09-14] MEDS: PIPERACIL-TAZO 3.375 GM PREMIX 50 ML IV SCH ×2 (02:17→09:02)
[2017-09-14] MEDS: CHLORHEXIDINE GLUCONATE 2 % 1 PACK (2 CLOTHS) TOP SCH (03:24)
[2017-09-14 03:51] LABS: HEMATOCRIT 33.6 % (39.0-51.0); HEMOGLOBIN 11.7 GM/DL (13.0-17.0); MEAN CELL VOLUME 85.7 FL (80.0-100.0); MEAN CORPUSCULAR HEMOGLOBIN 29.9 PG (27.0-34.0); MEAN CORPUSCULAR HGB CONC 34.8 % (32.0-36.0); MEAN PLATELET VOLUME 7.4 FL (7.0-11.0); PLATELET COUNT 314 TH/MM3 (150-450); RED BLOOD COUNT 3.92 MIL/MM3 (4.50-5.90); RED CELL DISTRIBUTION WIDTH 13.6 % (11.6-17.2); WHITE BLOOD COUNT 7.9 TH/MM3 (4.0-11.0)
[2017-09-14 04:00] VITALS: BP 136/79; PULSE 100; RESP 18; TEMP 100.2; O2SAT 95
[2017-09-14 04:33] LABS: ALBUMIN 2.4 GM/DL (3.4-5.0); ALKALINE PHOSPHATASE 60 U/L (45-117); ALT (GPT) 93 U/L (12-78); AST (GOT) 215 U/L (15-37); BICARBONATE 26.8 MEQ/L (21.0-32.0); BLOOD UREA NITROGEN 7 MG/DL (7-18); CALCIUM 7.8 MG/DL (8.5-10.1); CHLORIDE 108 MEQ/L (98-107); CREATININE 0.86 MG/DL (0.60-1.30); GLOMERULAR FILTRATION RATE 101 ML/MIN (>89); GLUCOSE,RANDOM 106 MG/DL (74-106); SODIUM (NA) 143 MEQ/L (136-145); TOTAL BILIRUBIN ADULT 0.4 MG/DL (0.2-1.0); TOTAL PROTEIN 5.7 GM/DL (6.4-8.2)
[2017-09-14 04:40] VITALS: PULSE 105
[2017-09-14] MEDS: HEPARIN SODIUM - SQ 10,000 UNITS/ML VIAL SQ SCH (05:27)
[2017-09-14 08:00] VITALS: BP 139/80; PULSE 91; RESP 18; TEMP 99.3; O2SAT 95
[2017-09-14] MEDS: DOCUSATE SODIUM 50 MG/SENNA 8.6 MG TAB PO SCH (09:02)
[2017-09-14] MEDS: FAMOTIDINE 20 MG TAB PO SCH (09:02)
[2017-09-14] MEDS ORDERED: PHARMACY ORDERED LAB ONE (10:45)
--- NOTE | 2017-09-14 11:30 | HHI.PYPN ---
Subjective Remarks Patient was seen today for psychiatric reevaluation. Chart review. Case discussed with the nurse in charge. On evaluation the patient is found eating his breakfast. He is calm and cooperative. He reports that he feels much better today. Patient is determined to stop using drugs and engaged in a rehabilitation program. However, patient continues to be unable to elaborate about the reason of her recent suicidal attempt by overdosing. He says that he was frustrated, but not morbid. At this moment she denies suicidal ideation, he continues to be minimizing symptomatology of potential depression. I spoke with his father who is states that the patient voiced suicidal statements several times in his way to the hospital. He does not feel safe in taking the patient back home until he starts some kind of treatment. Review of Systems Psychiatric: COMPLAINS OF: Depression, Suicidal Ideation Except as stated in HPI: all other systems reviewed are Neg Mental Status Examination Appearance: Appropriate Consciousness: Alert Orientation: x4 Motor Activity: Normal gait Speech: Unremarkable Language: Adequate Fund of Knowledge: Adequate Attention and Concentration: Adequate Memory: Unremarkable Mood: Sad Affect: Irritable, Sad Thought Process & Associations: Intact Thought Content: Appropriate Hallucination Type: None Delusion Type: None Suicidal Ideation: No Suicidal Plan: No Suicidal Intention: No Homicidal Ideation: No Homicidal Plan: No Homicidal Intention: No Insight: Poor Judgment: Poor Results Labs Test 09/13/17 16:23 09/13/17 21:47 09/14/17 03:34 Total Creatine Kinase 3541 U/L 2724 U/L 2096 U/L Creatine Kinase MB 31.3 NG/ML 17.1 NG/ML 9.7 NG/ML Creatine Kinase MB % 0.9 % 0.6 % 0.5 % White Blood Count 7.9 TH/MM3 Red Blood Count 3.92 MIL/MM3 Hemoglobin 11.7 GM/DL Hematocrit 33.6 % Mean Corpuscular Volume 85.7 FL Mean Corpuscular Hemoglobin 29.9 PG Mean Corpuscular Hemoglobin Concent 34.8 % Red Cell Distribution Width 13.6 % Platelet Count 314 TH/MM3 Mean Platelet Volume 7.4 FL Blood Urea Nitrogen 7 MG/DL Creatinine 0.86 MG/DL Random Glucose 106 MG/DL Total Protein 5.7 GM/DL Albumin 2.4 GM/DL Calcium Level 7.8 MG/DL Alkaline Phosphatase 60 U/L Aspartate Amino Transf (AST/SGOT) 215 U/L Alanine Aminotransferase (ALT/SGPT) 93 U/L Total Bilirubin 0.4 MG/DL Sodium Level 143 MEQ/L Potassium Level 3.7 MEQ/L Chloride Level 108 MEQ/L Carbon Dioxide Level 26.8 MEQ/L Anion Gap 8 MEQ/L Estimat Glomerular Filtration Rate 101 ML/MIN Date/Time Source Procedure Growth Status 09/12/17 21:05 Blood Peripheral Aerobic Blood Culture - Preliminary NO GROWTH IN 2 DAYS Resulted 09/12/17 21:05 Blood Peripheral Anaerobic Blood Culture - Preliminary NO GROWTH IN 2 DAYS Resulted Vitals/IOs Vital Signs Date Time Temp Pulse Resp B/P (MAP) Pulse Ox O2 Delivery O2 Flow Rate FiO2 09/14/17 08:00 99.3 91 18 139/80 (99) 95 09/14/17 00:00 Room Air 09/13/17 03:58 2.00 Intake and Output 09/14/17 09/14/17 09/15/17 08:00 16:00 00:00 Intake Total 2412.5 ml Balance 2412.5 ml Assessment & Plan Problem List: (1) Adjustment disorder with depressed mood ICD Codes: F43.21 - Adjustment disorder with depressed mood Assessment & Plan: Patient has attempted to commit suicide by overdosing with drugs. He continues to minimize symptomatology of depression and recent suicidal attempt. He needs psychiatric hospitalization for stabilization and safety. Assessment & Plan Estimated LOS: days Justification for Cont. Inpt. Admission in psychiatry needed for stabilization and safety. Michael Ralph MD Sep 14, 2017 11:30
[2017-09-14] MEDS: VANCOMYCIN INJ 1,750 MG in SODIUM CHLORID 0.9% 500 ML INJ 500 ML IV SCH (11:53)
[2017-09-14 12:00] VITALS: BP 122/70; PULSE 92; PULSE 93; RESP 18; TEMP 98.7; O2SAT 96
--- NOTE | 2017-09-14 12:44 | HHI.DS ---
Discharge Summary Admission Date Sep 12, 2017 at 21:59 Discharge Date: Sep 14, 2017 Admitting Diagnosis Cocaine overdose, pneumonia, possible endocarditis (1) Toxic encephalopathy ICD Code: G92 - Toxic encephalopathy (2) Polysubstance abuse ICD Code: F19.10 - Other psychoactive substance abuse, uncomplicated (3) Adjustment disorder with depressed mood ICD Code: F43.21 - Adjustment disorder with depressed mood Procedures None Brief History - From Admission History of present illness from the admitting physician 37-year-old male with past medical history of substance abuse who presents to [facility] emergency department with altered mental status. His girlfriend states that he has "been on a gonzalez" for 3 weeks and has been injecting crack cocaine. Today his father states he was driving him around trying to get him admitted into rehabilitation but the patient was refusing. He then became confused, "talking nonsense" and diaphoretic and therefore he brought him to [facility] emergency department. Upon arrival ED physician states heart rate was nearly 200 with blood pressure 240/ 140. He has been administered Ativan total of 4 mg IV. Blood pressure is 140 over 60s with heart rate in the 120s. His girlfriend states he was admitted to [facility] in [place] 3 times over the last few weeks for "sepsis" and signed himself out AMA each time. He was last in the hospital about a week and a half ago. In the ED he received 1 L normal saline bolus, vancomycin, Zosyn. His lactic acid is normal. His creatinine is elevated to 1.52. Transaminases are elevated. White blood cell count is 18 CBC/BMP: 09/14/17 0334 09/14/17 0334 Significant Findings Laboratory Tests Test 09/12/17 19:50 09/12/17 21:05 09/12/17 21:35 09/12/17 23:43 White Blood Count 18.7 TH/MM3 (4.0-11.0) Red Blood Count 4.20 MIL/MM3 (4.50-5.90) Hemoglobin 12.4 GM/DL (13.0-17.0) Hematocrit 35.6 % (39.0-51.0) Neutrophils (%) (Auto) 81.7 % (16.0-70.0) Lymphocytes (%) (Auto) 7.0 % (9.0-44.0) Monocytes (%) (Auto) 10.5 % (0.0-8.0) Neutrophils # (Auto) 15.3 TH/MM3 (1.8-7.7) Monocytes # (Auto) 2.0 TH/MM3 (0-0.9) Blood Urea Nitrogen 27 MG/DL (7-18) Creatinine 1.52 MG/DL (0.60-1.30) Random Glucose 107 MG/DL (74-106) Total Protein 6.1 GM/DL (6.4-8.2) Albumin 2.8 GM/DL (3.4-5.0) Calcium Level 8.3 MG/DL (8.5-10.1) Aspartate Amino Transf (AST/SGOT) 400 U/L (15-37) Alanine Aminotransferase (ALT/SGPT) 100 U/L (12-78) Sodium Level 131 MEQ/L (136-145) Chloride Level 96 MEQ/L (98-107) Estimat Glomerular Filtration Rate 52 ML/MIN (>89) Total Creatine Kinase 95648 U/L (39-308) Creatine Kinase MB 64.3 NG/ML (0.5-3.6) Salicylates Level LESS THAN 1.7 MG/DL Acetaminophen Level LESS THAN 2.0 MCG/ML Prothrombin Time 12.0 SEC (9.8-11.6) Activated Partial Thromboplast Time 32.4 SEC (24.3-30.1) Fibrinogen 458 mg/dL (227-377) Urine Protein 30 mg/dL (NEG-TRACE) Urine Ketones TRACE mg/dL (NEG) Urine Occult Blood LARGE (NEG) Urine RBC 12 /hpf (0-3) Urine Opiates Screen POS (NEG) Urine Amphetamines Screen POS (NEG) Urine Cocaine Screen POS (NEG) Test 09/13/17 01:15 09/13/17 03:26 09/13/17 08:58 09/13/17 08:59 White Blood Count 13.1 TH/MM3 (4.0-11.0) Red Blood Count 4.07 MIL/MM3 (4.50-5.90) Hemoglobin 11.9 GM/DL (13.0-17.0) Hematocrit 34.6 % (39.0-51.0) Neutrophils (%) (Auto) 81.7 % (16.0-70.0) Lymphocytes (%) (Auto) 8.9 % (9.0-44.0) Monocytes (%) (Auto) 8.9 % (0.0-8.0) Neutrophils # (Auto) 10.7 TH/MM3 (1.8-7.7) Monocytes # (Auto) 1.2 TH/MM3 (0-0.9) Random Glucose 110 MG/DL (74-106) Total Protein 5.9 GM/DL (6.4-8.2) Albumin 2.8 GM/DL (3.4-5.0) Calcium Level 8.0 MG/DL (8.5-10.1) Aspartate Amino Transf (AST/SGOT) 354 U/L (15-37) Alanine Aminotransferase (ALT/SGPT) 101 U/L (12-78) Sodium Level 134 MEQ/L (136-145) Estimat Glomerular Filtration Rate 73 ML/MIN (>89) Total Creatine Kinase 6438 U/L (39-308) 5214 U/L (39-308) Creatine Kinase MB 50.6 NG/ML (0.5-3.6) 47.6 NG/ML (0.5-3.6) Test 09/13/17 16:23 09/13/17 21:47 09/14/17 03:34 09/14/17 11:20 Total Creatine Kinase 3541 U/L (39-308) 2724 U/L (39-308) 2096 U/L (39-308) Creatine Kinase MB 31.3 NG/ML (0.5-3.6) 17.1 NG/ML (0.5-3.6) 9.7 NG/ML (0.5-3.6) Red Blood Count 3.92 MIL/MM3 (4.50-5.90) Hemoglobin 11.7 GM/DL (13.0-17.0) Hematocrit 33.6 % (39.0-51.0) Total Protein 5.7 GM/DL (6.4-8.2) Albumin 2.4 GM/DL (3.4-5.0) Calcium Level 7.8 MG/DL (8.5-10.1) Aspartate Amino Transf (AST/SGOT) 215 U/L (15-37) Alanine Aminotransferase (ALT/SGPT) 93 U/L (12-78) Chloride Level 108 MEQ/L (98-107) Imaging Last Impressions Chest X-Ray 09/12/171944 Signed Impressions: Service Date/Time: Tuesday, September 12, 2017 20:14 - CONCLUSION: Minimal density left lower lobe likely atelectasis. Carlos Bedoya MD Head CT 09/12/17 0000 Signed Impressions: Service Date/Time: Wednesday, September 13, 2017 00:48 - CONCLUSION: No acute disease. Campbell Chaudhary Jr., MD Chest CT 09/12/17 0000 Signed Impressions: Service Date/Time: Wednesday, September 13, 2017 00:51 - CONCLUSION: 1. Bilateral pulmonary infiltrates. Campbell Chaudhary Jr., MD Abdomen/Pelvis CT 09/12/17 0000 Signed Impressions: Service Date/Time: Wednesday, September 13, 2017 00:51 - CONCLUSION: No acute disease. Campbell Chaudhary Jr., MD PE at Discharge GENERAL: This is a well-nourished, well-developed patient, in no apparent distress. CARDIOVASCULAR: Normal rate and regular rhythm without murmurs, gallops, or rubs. RESPIRATORY: Good respiratory efforts. Breath sounds equal and clear to auscultation bilaterally. GASTROINTESTINAL: Abdomen soft, non-tender, non-distended. Normal active bowel sounds MUSCULOSKELETAL: Extremities without cyanosis, or edema. NEURO: Alert & Oriented x4 to person, place, time, situation. Moves all ext x4 PSYCH: Appropriate mood and affect. Pt update on day of discharge Patient reports is feeling well. Inquiring about when he will be able to go home. He is agreeable for transfer to psychiatry per the psychiatrist's recommendations. Hospital Course 37-year-old male who presented with toxic encephalopathy secondary to possibly substance abuse including cocaine, amphetamines, and opiates. The patient admits to a history of IV drug use. There were concern for sepsis. The patient was empirically started on IV antibiotics. The patient quickly improved. He remained afebrile, leukocytosis quickly resolved and his blood cultures were negative at 48 hours. He did not show any further signs of sepsis. He was discharged without antibiotics. He voiced suicidal ideation. He was evaluated by psychiatry recommended psychiatric admission. The patient is discharged to psychiatry for further stabilization. The patient was thoroughly counseled to not use illicit drugs. He is medically cleared for psychiatric admission. Pt Condition on Discharge: Good Discharge Disposition: Disc to Psych Care Fac Discharge Time: <= 30 minutes Discharge Instructions DIET: Follow Instructions for: As Tolerated, No Restrictions Activities you can perform: Regular-No Restrictions Medication Profile: No Active Prescriptions or Reported Meds Aldair Foster MD Sep 14, 2017 12:44
[2017-09-14] MEDS ORDERED: VANCOMYCIN INJ 1,500 MG in SODIUM CHLORID 0.9% 500 ML INJ 500 ML IV SCH (20:00)
[2017-09-15] MEDS ORDERED: BUPR100CR PO (08:31)
[2017-09-15] MEDS ORDERED: PHARMACY ORDERED LAB ONE (11:45)
== END 2017-09-14 14:15 | DRG 917 ==
LOC: NEPC 19:27 → NEDA 21:59 → HIME 09-13 01:10 → N04A 09-13 15:01
PROVIDERS: ADMIT Family Medicine; ATTEND Family Medicine
DX: T40.5X1A Poisoning by cocaine, accidental (unintentional), initial encounter (principal); G92 Toxic encephalopathy; J18.9 Pneumonia, unspecified organism; N17.9 Acute kidney failure, unspecified; M62.82 Rhabdomyolysis; R45.851 Suicidal ideations; F17.210 Nicotine dependence, cigarettes, uncomplicated; F43.21 Adjustment disorder with depressed mood; R03.0 Elevated blood-pressure reading, without diagnosis of hypertension; R00.0 Tachycardia, unspecified; R09.02 Hypoxemia; F41.9 Anxiety disorder, unspecified; R74.0 Nonspecific elevation of levels of transaminase and lactic acid dehydrogenase [LDH]
CPT/HCPCS: 70450; 71045; 71250; 74176; 80053; 80202; 80307; 81001; 82550; 82552; 83605; 83735; 83880; 84100; 84484; 85025; 85027; 85384; 85610; 85730; 87040; 87641; 93306; J1644; J2060; J2543; J3370; J7030; J7040; J7050; J7120

== ENCOUNTER 2017-09-14 14:27 | Inpatient (IN) | payer BC ==
[~2017-09-14] VITALS: Ht 172.7 cm; Wt 85.1 kg
[2017-09-14 14:59] VITALS: BP 141/71; PULSE 93; RESP 16; TEMP 98.7
[2017-09-14] MEDS ORDERED: NICOTINE 21 MG/24 HR PATCH T-DERMAL SCH (16:00)
[2017-09-14] MEDS ORDERED: LORazepam 2 MG/ML VIAL IM PRN ×4 (16:00)
[2017-09-14] MEDS ORDERED: LORazepam 1 MG TAB PO PRN ×2 (16:00)
[2017-09-14] MEDS ORDERED: LORazepam 0.5 MG TAB PO PRN ×2 (16:00)
[2017-09-14] MEDS ORDERED: ACETAMINOPHEN 325 MG TAB PO PRN ×2 (16:00)
[2017-09-14] MEDS ORDERED: MAGNESIUM HYDROXIDE SUSP 30 ML CUP PO PRN ×2 (16:00)
[2017-09-14] MEDS ORDERED: ALUMINUM/MAGNESIUM/SIMETH 30 ML CUP PO PRN ×2 (16:00)
[2017-09-14] MEDS: NICOTINE 21 MG/24 HR PATCH T-DERMAL SCH ×2 (17:35→17:38)
[2017-09-14] MEDS: REMOVE OLD NICOTINE PATCH T-DERMAL SCH (17:36)
[2017-09-14 18:14] VITALS: BP 121/66; PULSE 88; RESP 16; TEMP 98.2; O2SAT 98
[2017-09-15 06:23] VITALS: BP 151/82; PULSE 73; RESP 16; TEMP 98.5; O2SAT 98
[2017-09-15] MEDS: REMOVE OLD NICOTINE PATCH T-DERMAL SCH (08:09)
[2017-09-15] MEDS: NICOTINE 21 MG/24 HR PATCH T-DERMAL SCH (08:09)
[2017-09-15] MEDS ORDERED: BUPR100CR PO (08:31)
--- NOTE | 2017-09-15 08:43 | HHI.HP ---
Provisional Diagnosis Admission Date Sep 14, 2017 at 14:27 [place] I. Adjustment disorder with depressed mood, opiates use disorder [place] II. Deferred Certification of Person's Competence To Provide Express and Informed Consent I have personally examined Jay Jay Bradley , a person being served at [facility] on, Sep 15, 2017 08:35. Express and informed consent means consent voluntarily given in writing, by a competent person, after sufficient explanation and disclosure of the subject matter involved to enable the person to make a knowing and willful decision without any element of force, fraud, deceit, duress, or other form of constraint or coercion. This person is 18 years of age or older, is not now known to be incompetent to consent to treatment with a guardian advocate, and does not have a health care surrogate or proxy currently making medical treatment decisions. I have found this person to be one of the following: [x] Competent to provide express and informed consent, as defined above, for voluntary admission to this facility and is competent to provide express and informed consent for treatment. He/she has the consistent capacity to make well reasoned, willful, and knowing decisions concerning his or her medical or mental health treatment. The person fully and consistently understands the purpose of the admission for examination/placement and is fully capable of personally exercising all rights [place] Incompetent to provide express and informed consent to voluntary admission, and this is incompetent to provide express and informed consent to treatment. The person must be transferred to involuntary status and a petition for a guardian advocate filed with the Circuit Court. [] Refusing to provide express and informed consent to voluntary admission but is competent to provide express and informed consent for treatment. The person must be discharged or transferred to involuntary status. Form shall be completed within 24 hours of a person's arrival at the receiving facility and filed in the clinical record of each person: 1. Admitted on a voluntary basis 2. Permitted to provide express and informed consent to his/her own treatment 3. Allowed to transfer from involuntary to voluntary status 4. Prior to permitting a person to consent to his or her own treatment after having been previously found incompetent to consent to treatment. History of Present Illness Capacity: Has Capacity HPI 09/13/2017 The patient is a 37-year-old man, single, domiciled with his father, unemployed, with psychiatric history of depression, no previous psychiatric admission, no currently psychotropics or outpatient care, polysubstance dependence including opiates, cocaine, benzodiazepines, patient has been Kaminski acted before due to substance related issues, history of incarcerations, no significant medical history who presents to [facility] emergency department with altered mental status. His girlfriend states that he has "been on a gonzalez" for 3 weeks and has been injecting crack cocaine. Today his father states he was driving him around trying to get him admitted into rehabilitation but the patient was refusing. He then became confused, "talking nonsense" and diaphoretic and therefore he brought him to [facility] emergency department. Upon arrival ED physician states heart rate was nearly 200 with blood pressure 240/140. He has been administered Ativan total of 4 mg IV. Blood pressure is 140 over 60s with heart rate in the 120s. His girlfriend states he was admitted to [facility] in [place] 3 times over the last few weeks for "sepsis" and signed himself out AMA each time. He was last in the hospital about a week and a half ago. In the ED he received 1 L normal saline bolus, vancomycin, Zosyn. His lactic acid is normal. His creatinine is elevated to 1.52. Transaminases are elevated. White blood cell count is 18. Consulted to psychiatry to assess potential suicidal attempt behind overdose. Patient is currently on the Kaminski act. At the moment of this evaluation the patient reports that he overdosed with multiple drugs "to forget and to go to sleep". He says that at some point he verbalized that he wanted to and he was better to be . He says that there are issues in his life. He refused to talk about at this moment stating "I want to talk about". He does say that he has been sober for certain time, but recently has relapsed and has been using drugs continuously. At this moment the patient denies suicidal ideation and homicidal ideation, he denies visual and auditory hallucinations. No confusion is observed, no delirium. He is oriented 3. Collateral from his father Srini Antony, [id number]: His father states that He is a drugs abuser, but he was fine for a year or more, the he was to the dentist got prescribe some pain medications and apparently since then he has relapsed. The father clarifies that the patient verbalized suicidal intentions multiple times when he was in his way to the hospital. He says that this is the first time he sees his son so disorganized and so depressed. 09/14/2017 Patient was seen today for psychiatric reevaluation. Chart review. Case discussed with the nurse in charge. On evaluation the patient is found eating his breakfast. He is calm and cooperative. He reports that he feels much better today. Patient is determined to stop using drugs and engaged in a rehabilitation program. However, patient continues to be unable to elaborate about the reason of her recent suicidal attempt by overdosing. He says that he was frustrated, but not morbid. At this moment she denies suicidal ideation, he continues to be minimizing symptomatology of potential depression. I spoke with his father who is states that the patient voiced suicidal statements several times in his way to the hospital. He does not feel safe in taking the patient back home until he starts some kind of treatment. 09/15/2017 patient was seen today for psychiatric evaluation in the psychiatric unit. Patient was awake, alert, reports that he feels much better now. Patient also reports that he has been in contact with his family and his girlfriend and they all agree that he will go to [facility] to [facility] after discharge here. Patient reports that his mood is improved, he says that he feels the motivation to fight against his drug addiction and be sober. Patient reports that he would love to be back in Wellbutrin as he was before and he had such a good response. Patient denies suicidal ideation at this moment, he denies visual and auditory hallucinations. Patient is fully oriented 3, no attention deficit. No paranoia, no delusions, no ideas of reference loosening of associations present. No agitation or aggressive behavior reported. Review of Systems Except as stated in HPI: all other systems reviewed are Neg Substance Abuse History Drugs/Alcohol past 12 months Patient reports abuse in heroine and cocaine almost daily in the last 2 weeks. Past Family Social History Coded Allergies: No Known Allergies (Verified Allergy, Severe, 09/13/17) Active Scripts Bupropion HCl ER 12 HR (Wellbutrin SR 12 HR) 100 Mg Tab, 100 MG PO Q12HR for Control Depression for 30 Days, #60 TAB 0 Refills Prov:Michael Ralph MD 09/15/17 Current Medications Medications (Trade) Dose Ordered Sig/Amanda Route Start Time Stop Time Status Last Admin (Ativan) 1 mg Q6H PRN PO 09/14/17 16:00 (Ativan Inj) 1 mg Q6H PRN IM 09/14/17 16:00 (Tylenol) 650 mg Q4H PRN PO 09/14/17 16:00 (Milk Of Magnesia Liq) 30 ml DAILY PRN PO 09/14/17 16:00 (Mag-Al Plus Susp Liq) 30 ml Q6H PRN PO 09/14/17 16:00 (Habitrol 21 Mg Patch.24 Hr) 1 patch DAILY T-DERMAL 09/14/17 18:00 09/15/17 08:09 Miscellaneous Information 1 DAILY T-DERMAL 09/14/17 18:00 09/15/17 08:09 Family Psych History No family psychiatric history Social History Patient was born and raised in [place], he lives with his father in [place], he has a girlfriend, unemployed, highest level of education is some college Patient's Strengths (min. 2) Family support Physical Exam Vital Signs Vital Signs Date Time Temp Pulse Resp B/P (MAP) Pulse Ox O2 Delivery O2 Flow Rate FiO2 09/15/17 06:23 98.5 73 16 151/82 (105) 98 Mental Status Examination Appearance: Appropriate Consciousness: Alert Orientation: x4 Motor Activity: Normal gait Speech: Unremarkable Language: Adequate Fund of Knowledge: Adequate Attention and Concentration: Adequate Memory: Unremarkable Mood: Appropriate Affect: Appropriate Thought Process & Associations: Intact Thought Content: Appropriate Hallucination Type: None Delusion Type: None Suicidal Ideation: No Suicidal Plan: No Suicidal Intention: No Homicidal Ideation: No Homicidal Plan: No Homicidal Intention: No Insight: Adequate Judgment: Adequate Assessment & Plan Problem List: (1) Adjustment disorder with depressed mood ICD Codes: F43.21 - Adjustment disorder with depressed mood Assessment & Plan: On psychiatric evaluation today the patient does not present any significant, concerning evidence of objective or subjective symptomatology of depression, anxiety, hema or psychosis. The patient denies suicidal and homicidal ideation, he denies visual and auditory hallucinations. Patient has a long time history of depression and polysubstance dependence, including alcohol, cocaine and heroine. He reports that in the past he has been quite stable for a long time with Wellbutrin 300 mg per day. Patient seems to be motivated to engage in a rehabilitation program. Family members contacted and they agreed with the plan of discharging the patient to [facility]. At this moment the patient does not require to continue psychiatric hospitalization. I will start Wellbutrin 100 mg twice a day. Extensive brief supportive psychotherapy and also divisional interview provided. human services worker intervention to coordinating a safe discharge. (2) Polysubstance abuse ICD Codes: F19.10 - Other psychoactive substance abuse, uncomplicated Assessment & Plan Estimated LOS: days Michael Ralph MD Sep 15, 2017 08:43
== END 2017-09-15 10:45 | DRG 881 ==
LOC: H260 14:27
PROVIDERS: ADMIT Psychiatry & Neurology Psychiatry; ATTEND Psychiatry & Neurology Psychiatry
DX: F43.21 Adjustment disorder with depressed mood (principal); F19.20 Other psychoactive substance dependence, uncomplicated